=== PATIENT | male | born 1955 | race Caucasian/White ===

== ENCOUNTER 2022-06-23 09:43 | Outpatient (CLI) | payer OTHER, SELFPAY ==
--- NOTE | 2022-06-28 16:27 | WPDHOMESLEEP ---
Sleep Study - Home Unattended Date of Study: 06/23/22 Ordering Provider: Pablo Brown MD Interpreting Provider: Milka Velasquez MD Home Sleep Study Type: Watch PAT Height: 1.88 m Weight: 156.489 kg Body Mass Index: 44.3 Neck Circumference (inches): 18.75 [place]: 5 Reason for Sleep Study Loud snoring, hypertension, PVCs Sleep History Santino Tejada is a 66-year-old man with complex cardiac history. 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 His most recent echocardiogram was June 2018 which showed a normal LV systolic function 50-55%. He had an echo April 30, 2017 that showed an ejection fraction of 45% with severe left atrial enlargement and mild mitral regurgitation. The patient does not awaken from sleep feeling short of breath. He rarely awakens at night with a cough. He frequently snores and occasionally this is loud enough that it disturbs others. He occasionally has trouble sleeping with a cold. He does not wake up gasping for breath at night. He rarely has breathing problems at night observed by others. He does not sweat excessively at night. He does not notice his heart pounding or beating irregularly at night. He occasionally falls asleep during the day, rarely falls asleep involuntarily but never falls asleep while driving. He does not have loss of muscle tone with strong emotion. He does not have daytime difficulties due to excessive sleepiness. He does not feel paralyzed on waking or falling asleep. He does not have vivid dreamlike scenes on waking or falling asleep. He does not feel afraid to go to sleep. He does not have nightmares. He occasionally remembers his dreams. He occasionally has racing thoughts. He does not feel sad or depressed. He does not have anxiety. He denies having muscular tension or noticing parts of his body jerking. He does not kick at night. He denies having crawling and aching feelings in his legs. He rarely has any kind of leg pain at night. He does not have morning jaw pain. He does not grind his teeth during sleep. He occasionally is bothered by pain during the day, rarely awakened by pain at night. He does not wake up feeling stiff in the morning. He does not wake up with sore achy muscles. He rarely wakes up with pain in the neck and spine. Normal bedtime is 10:00 p.m., falling asleep within 5-15 minutes. He typically wakes up twice during the night. On average, is returns to sleep within 1-5 minutes. He rolls over and returns to sleep. He wakes the morning at 6:00 a.m.. He takes naps in the afternoon or evening. A short nap may be refreshing. Most of the time he feels adequate on waking. He feels better in the morning or afternoon compared to evenings. Habits: Never smoked tobacco. Caffeine 3 cups of coffee a day. No alcohol or recreational substance. [facility] [place] Past Medical History Medical History (Updated 06/28/22 @ 17:02 by Milka Velasquez MD) Arrhythmia Bilateral lower extremity edema Hypertension Left atrial enlargement Mixed hyperlipidemia Morbid obesity Surgical History Surgical History (Updated 06/28/22 @ 16:44 by Milka Velasquez MD) History of arthroscopic knee surgery History of rotator cuff surgery left Social History Social History (Updated 06/28/22 @ 16:45 by Milka Velasquez MD) Smoking status: Never smoker Alcohol intake: never Substance use: never Sleep Procedure The sleep study was completed using WatchPAT a technically adequate device with seven channels: peripheral arterial tone, actigraphy, body position, snore, respiratory movement, pulse oximetry, sleep staging, and heart rate. Prior to using the device, the patient received verbal and written instructions for its application and was provided with the help desk phone number for additional telephonic instruction with 24-hour availability of qualified personnel to answer questions.
[2022-06-28 17:07] VITALS: BMI 44.3
--- NOTE | 2022-09-11 10:18 | SLEEP ---
CALLED DR PABON OFFICE TO INFORM THEM OF AHI 93.5
== END 2022-06-25 10:22 | disposition home or self-care (01) ==
PROVIDERS: Visit Provider Internal Medicine Cardiovascular Disease
DX: G47.33 Obstructive sleep apnea (adult) (pediatric) (principal)
CPT/HCPCS: 95800

== ENCOUNTER 2022-10-19 09:44 | Outpatient (CLI) | payer OTHER, SELFPAY ==
--- NOTE | 2022-10-22 12:35 | WPDSLEEPSTUD ---
Sleep Study Date of Study: 10/19/22 Ordering Provider: Enrike Medrano APRN Interpreting Physician: Milka Velasquez MD Sleep Study Type: BiPAP Titration Height: 1.88 m Weight: 161 kg Body Mass Index: 45.6 Neck Circumference (inches): 18.5 [place]: 8 Reason for Sleep Study * 06/23/22 Home Sleep Test showed severe obstructive sleep apnea, AHI 93.5, profound hypoxemia with a mean desaturation 90 year of 51%, mean saturation during this study 88% and 152.2 minutes spent below 88%, 33.7% of the study. The study also shows moderate [place] respirations, present 17.4% of the night. There were 7 central apneas with a central apnea index of 1.2. His EF is less than 45%, not a candidate for ASV. Sleep History Santino Tejada is a 66-year-old male with history of hypertension, hyperlipidemia presents to the sleep lab for a PAP titration after a recent home sleep test showed severe sleep apnea with profound hypoxemia. He did not fill out a new sleep questionnaire for this study. The following sleep history was obtained from his recent home sleep test 06/23/22: This patient has a complex cardiac history.? 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 ? His most recent echocardiogram was June 2018 which showed a normal LV systolic function 50-55%.? He had an echo April 30, 2017 that showed an ejection fraction of 45% with severe left atrial enlargement and mild mitral regurgitation.? The patient does not awaken from sleep feeling short of breath.? He rarely awakens at night with a cough.? He frequently snores and occasionally this is loud enough that it disturbs others.? He occasionally has trouble sleeping with a cold.? He does not wake up gasping for breath at night.? He rarely has breathing problems at night observed by others.? He does not sweat excessively at night.? He does not notice his heart pounding or beating irregularly at night.? He occasionally falls asleep during the day, rarely falls asleep involuntarily but never falls asleep while driving.? He does not have loss of muscle tone with strong emotion.? He does not have daytime difficulties due to excessive sleepiness.? He does not feel paralyzed on waking or falling asleep.? He does not have vivid dreamlike scenes on waking or falling asleep.? He does not feel afraid to go to sleep.? He does not have nightmares.? He occasionally remembers his dreams.? He occasionally has racing thoughts.? He does not feel sad or depressed.? He does not have anxiety.? He denies having muscular tension or noticing parts of his body jerking.? He does not kick at night.? He denies having crawling and aching feelings in his legs.? He rarely has any kind of leg pain at night.? He does not have morning jaw pain.? He does not grind his teeth during sleep.? He occasionally is bothered by pain during the day, rarely awakened by pain at night.? He does not wake up feeling stiff in the morning.? He does not wake up with sore achy muscles.? He rarely wakes up with pain in the neck and spine. Normal bedtime is 10:00 p.m., falling asleep within 5-15 minutes.? He typically wakes up twice during the night.? On average, is returns to sleep within 1-5 minutes.? He rolls over and returns to sleep.? He wakes the morning at 6:00 a.m.. ? He takes naps in the afternoon or evening.? A short nap may be refreshing.? Most of the time he feels adequate on waking.? He feels better in the morning or afternoon compared to evenings. Habits:? Never smoked tobacco.? Caffeine 3 cups of coffee a day.? No alcohol or recreational substance. [facility] Past Medical History Medical History Arrhythmia Bilateral lower extremity edema Hypertension Left atrial enlargement Mixed hyperlipidemia Morbid obesity Surgical History Surgical History History of arthroscopic knee surgery
[2022-10-22 12:48] VITALS: BMI 45.6
== END 2022-10-20 06:57 | disposition home or self-care (01) ==
LOC: ANHCSM 09:46
PROVIDERS: Visit Provider Nurse Practitioner Family
DX: G47.33 Obstructive sleep apnea (adult) (pediatric) (principal)
CPT/HCPCS: 95811

== ENCOUNTER → 2023-01-21 14:54 | Outpatient (CLI) | payer MEDICARE, SELFPAY ==
--- NOTE | ~2023-01-21 | MR_ITS ---
EXAMINATION: MR shoulder RT wo con DATE: 01/21/2023 16:00 INDICATION: Right shoulder pain. TECHNIQUE: Magnetic resonance imaging (MRI) of the right shoulder was performed without intravenous c ontrast. COMPARISON: Right shoulder radiographs 07/20/2022 FINDINGS: Coracoacromial arch: The acromion undersurface is curved in morphology (type II). There is a mesoacromial os acromiale. Th ere is mild osteoarthritis of acromioclavicular joint. There is moderate subacromial/subdeltoid bursi tis. Rotator cuff: There is a full-thickness tear of anterior supraspinatus tendon measuring 5 mm anterior to posterior by 8 mm proximal to distal. There is an articular sided partial-thickness tear of supraspinatus and i nfraspinatus tendons. Teres minor tendon is normal. Subscapularis tendon is normal. There is no asymm etric fatty atrophy of the rotator cuff muscle bellies. Biceps tendon and glenoid labrum: Biceps tendon is in bicipital groove. Intra-articular biceps tendon is normal. The glenoid labrum is normal. Fluid: There is a small glenohumeral joint effusion. Bones/cartilage: There is cartilage surface irregularity of glenoid and humeral head. IMPRESSION: 1. Full-thickness rotator cuff tear. 2. Mild glenohumeral joint chondrosis. 3. Mild acromioclavicular joint osteoarthritis. 4. Moderate subacromial/subdeltoid bursitis and small glenohumeral joint effusion. 5. Os acromiale. Reviewed, dictated and finalized at location A. IMPRESSION: 1. Full-thickness rotator cuff tear. 2. Mild glenohumeral joint chondrosis. 3. Mild acromioclavicular joint osteoarthritis. 4. Moderate subacromial/subdeltoid bursitis and small glenohumeral joint effusi on. 5. Os acromiale.
== END ==
PROVIDERS: PCP Nurse Practitioner; Visit Provider Nurse Practitioner
DX: M19.011 Primary osteoarthritis, right shoulder (principal); M75.101 Unspecified rotator cuff tear or rupture of right shoulder, not specified as traumatic; M75.51 Bursitis of right shoulder
CPT/HCPCS: 73221